=== PATIENT | male | born 1960 | race Caucasian/White ===

== ENCOUNTER 2019-02-20 12:54 | Emergency (ER) | payer OTHER ==
[2019-02-20 13:14] VITALS: BP 153/87
--- NOTE | 2019-02-20 13:24 | UC ---
UC General HPI - HPI Summary HPI Summary: PT STATES FELT NOT WELL DAY NIGHT. NOW HE HAS CHILLS AND A RASH ON THE INSIDE OF HIS L ANKLE. HX SAME AND WAS DX WITH CELLULITIS. + HX DM BUT BS STABLE. + HX MRSA. NO JOINT PAIN. - History of Current Complaint Chief Complaint: UCSkin Stated Complaint: SKIN CONCERN Time Seen by Provider: 02/20/19 13:07 Hx Obtained From: Patient Onset/Duration: Gradual Onset Timing: Constant Pain Intensity: 3 Associated Signs & Symptoms: Negative: Diarrhea, Headache, Vomiting - Allergy/Home Medications Allergies/Adverse Reactions: Allergies Allergy/AdvReac Type Severity Reaction Status Date / Time No Known Allergies Allergy Verified 02/20/19 13:09 Home Medications: Home Medications Ibuprofen TAB* [Advil TAB*] 400 - 600 mg PO Q6H PRN 02/20/19 [History Confirmed 02/20/19] Insulin Glargine,Hum.rec.anlog [Lantus Solostar 5x3 ML PENS] 20 units SUBCUT QAM 02/20/19 [History Confirmed 02/20/19] Metformin ER (NF) [Glucophage ER 750 MG TAB (NF)] 750 mg PO DAILY 02/20/19 [ History Confirmed 02/20/19] Omeprazole CAP (NF) [Prilosec CAP* 20 MG] 20 mg PO DAILY PRN 02/20/19 [History Confirmed 02/20/19] PMH/Surg Hx/FS Hx/Imm Hx - Additional Past Medical History Additional PMH: MRSA, CELLULITIS LLE Endocrine History: Diabetes GI/ History: Gastroesophageal Reflux - Surgical History Surgical History: Yes Surgery Procedure, Year, and Place: 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 Lopez 2000, umbilical hernia ~2010 - Family History Known Family History: Positive: Diabetes - Social History Occupation: Employed Full-time Alcohol Use: Rare Substance Use Type: None Smoking Status (MU): Smoker, Current Status Unknown Type: Cigars Amount Used/How Often: Maybe once a year Review of Systems All Other Systems Reviewed And Are Negative: No Constitutional: Positive: Fever, Chills Skin: Positive: Rash Gastrointestinal: Negative: Vomiting, Diarrhea Musculoskeletal: Negative: Arthralgia, Decreased ROM Physical Exam Triage Information Reviewed: Yes Appearance: Well-Appearing Vital Signs: Initial Vital Signs Temp 99.5 F 02/20/19 13:04 Pulse 96 02/20/19 13:04 Resp 18 02/20/19 13:04 BP 153/87 02/20/19 13:04 Pulse Ox 98 02/20/19 13:04 Vital Signs Reviewed: Yes Eyes: Positive: Conjunctiva Clear Neck: Positive: Supple Respiratory: Positive: Lungs clear, No accessory muscle use Cardiovascular: Positive: RRR Abdomen Description: Positive: Other: - NO INGUINAL ADENOPATHY Neurological: Positive: Alert Psychological: Positive: Age Appropriate Behavior Skin Exam: Normal, Other - 10CM AREA OF ERYTHEMA, WARMTH AND MILD SWELLING JUST SUPERIOR TO L MEDIAL MALLEOLUS. NO STREAKING. NO JOINT PAIN. MILD HYPERPIGMENTATION CHANGES NOTED. LLE HAS FULL S/V/M FUNCTION. Course/Dx - Differential Dx - Multi-Symptom Differential Diagnoses: Other - NON TOXIC. CELLULITIS AND HX MRSA THUS WILL TX WITH DOXYCYCLINE. NEED FOR CLOSE F/U STRESSED AND GO TO ER FOR WORSENING TO WHICH PT AGREES. - Diagnoses Provider Diagnosis: Cellulitis of left lower extremity Discharge ED - Sign-Out/Discharge Documenting (check all that apply): Patient Departure All imaging exams completed and their final reports reviewed: No Studies - Discharge Plan Condition: Stable Disposition: HOME Prescriptions: DOXYcycline CAP(*) [DOXYcycline 100MG CAP(*)] 100 mg PO BID 10 Days #20 cap Patient Education Materials: Cellulitis (ED) Forms: *Work Release Referrals: Micky Browning PA [Primary Care Provider] - 2 Days Additional Instructions: GO TO THE ER FOR ANY WORSENING - Billing Disposition and Condition Condition: STABLE Disposition: Home
== END 2019-02-20 13:29 | disposition home or self-care (01) ==
LOC: UCCORT 12:54
DX: L03.116 Cellulitis of left lower limb (principal); E11.9 Type 2 diabetes mellitus without complications; Z79.4 Long term (current) use of insulin; Z79.84 Long term (current) use of oral hypoglycemic drugs; K21.9 Gastro-esophageal reflux disease without esophagitis; Z86.14 Personal history of Methicillin resistant Staphylococcus aureus infection; F17.290 Nicotine dependence, other tobacco product, uncomplicated
CPT/HCPCS: 99212; G0463

== ENCOUNTER 2019-07-29 16:40 | Emergency (ER) | payer OTHER ==
--- OUTSIDE RECORDS SUMMARY | 2019-07-29 16:46 | XMS REPORT | Continuity of Care Document ---
:1960 External Reference #:[id number] Author Name Addi Castle M.D. 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 Onset: 03/17/2019 Kidney stone Addi Castle M.D. Onset: 03/17/2019 Screening for malignant neoplasm of prostate Addi Castle M.D. Onset: 03/2019 Ureteric stone Onset: Cellulitis Onset: Cellulitis of lower limb Onset: Hyperglycemia Onset: Hypertensive disorder Onset: Kidney stone Onset: Type 2 diabetes mellitus Onset: Renal colic Onset: Benign prostatic hyperplasia Addi Castle M.D. Onset: 03/31/2019 Social History Type Date Description Comments Sex Unknown Tobacco Use Start: Unknown Never Smoked Cigarettes Smokeless Tobacco Never Used Smokeless Tobacco ETOH Use Occasionally consumes alcohol Tobacco Use Start: Unknown Patient denies history rare use of cigars of smoking Recreational Drug Use Denies Drug Use Smoking Status Reviewed: 05/24/19 Patient denies history rare use of cigars of smoking Allergies, Adverse Reactions, Alerts Description No Known Drug Allergies Medications Active Medications SIG Qnty Indications Ordering Date Provider Potassium Citrate 1 tab by mouth twice 180tabs N20.0 Tin, 05/20/2019 ER a day Marcie Fontana 15Meq (1620 mg) Tablets ER Tamsulosin HCL 1 by mouth every day 90caps Tin, 05/13/2019 at bedtime Marcie Fontana 0.4mg Capsules Amlodipine Besylate Once Daily as needed 60tabs Unknown 04/27/2019 for if BP> 140/80 5mg Tablets SM Acidophilus 2 Times A Day 60caps Unknown 04/27/2019 10mg Capsules Sildenafil Citrate Daily as needed for 8tabs Unknown ED 100mg Tablets Omeprazole Once Daily 30tabs Unknown 20mg Tablets DR Metformin HCL ER Once Daily 30tabs Unknown 750mg Tablets ER 24HR Lantus Solostar Daily 6units Unknown 100Unit/ML Solution Pen-Inject Basaglar Kwikpen subcutaneous Unknown injection in am 100Unit/ML Solution Pen-Inject Prilosec 1 po qd Unknown 20mg Capsules DR History Medications Bactrim DS 1 tab by mouth 1tabs Addi Castle, 05/20/2019 - 800-160mg Once Given In M.D. 05/21/2019 Tablets Office Before Procedure Cefdinir 1 tab by mouth 1caps Addi Castle, 05/05/2019 - 300mg once given in M.D. 05/06/2019 Capsules office before procedure Cefdinir Every 12 Hours 15caps Unknown 04/27/2019 - 300mg 05/05/2019 Capsules Bactrim DS 1 tab by mouth 1tabs Addi Castle, 03/30/2019 - 800-160mg once given in M.D. 04/01/2019 Tablets office before procedure Dulcolax 4 tablets taken a 4tabs Z12.Terence Coe, 01/03/2019 - 5mg Tablets 8pm the day 03/14/2019 before the procedure Magnesium Citrate 296ml Z12.11 Terence Traore, 01/03/2019 - 03/14/2019 1.745GM/30ML Solution Suprep Bowel Prep one bottle at 354ml Z12.Terence Coe, 01/03/2019 - Kit night and one in 03/14/2019 the morning 17.5-3.13-1.6GM/177M L Solution Simethicone 1 tab by mouth 4units Z12.11 Terence Traore, 01/03/2019 - 125mg twice a day 03/17/2019 Chewt[facility] Immunizations CPT Code Status Date Vaccine Lot # 82437 Given Unknown Influenza Virus Vaccine, Quadrivalent, 36 Mos+, .5ML Vital Signs Date Vital Result Comment 06/10/2019 8:31am BP Systolic Sitting Left Arm 158 mmHg BP Diastolic Sitting Left Arm 84 mmHg Body Temperature 98.5 F Heart Rate 78 /min Respiratory Rate 16 /min Height 70 inches 5'10" Weight 213.00 lb BMI (Body Mass Index) 30.6 kg/m2 BSA (Body Surface Area) 2.14 m2 [place] body weight in kilograms 75 kg O2 % BldC Oximetry 99 % 05/20/2019 8:56am BP Systolic 134 mmHg BP Diastolic 82 mmHg Body Temperature 96.5 F Tympanic Heart Rate 80 /min Respiratory Rate 17 /min Height 70 inches 5'10" Weight 214.00 lb Pain Level 0 BMI (Body Mass Index) 30.7 kg/m2 BSA (Body Surface Area) 2.15 m2 [place] body weight in kilograms 75 kg O2 % BldC Oximetry 98 % Results Test Acquired Date Facility Test Result H/L Range Note Urine Dipstick 06/10/2019 [facility] Color Yellow Yellow Ua Clarity Clear Clear Ua Leuko Negative Negative Ua Nitrite Negative Negative Ua Urobilinogen 0.2 0.2 - 1.0 E.U./dL Ua Protein Negative Negative Ua PH 7.0 6.5-7.5 Ua Blood Negative Negative Ua Specific [place] 1.015 1.010-1.030 Ua Ketones Negative Negative Ua Bilirubin Negative Negative Ua Glucose 1000 High Negative Calculi,Urinary,With Photo 05/11/2019 [facility] Color [place] . [address] [place] [address] [phone] Size (SEE NOTE) 2 Weight 95.5 mg . Composition (SEE NOTE) 3 Uric Acid 100 % . Nidus (SEE NOTE) 4 . (SEE NOTE) 5 . (SEE NOTE) 6 . (SEE NOTE) 7 Disclaimer (SEE NOTE) 8 Basic Metabolic Panel 05/02/2019 [facility] Glucose 161 mg/dL High 74-106 [address] [place] [address] [phone] BUN 15 mg/dL Normal 7-18 Creatinine 1.1 mg/dL Normal 0.6-1.3 Glom Filtration Rate, Estimate >60 mL/min >60 If >60 mL/min >60 10 BUN/Creat 13.6 ratio Sodium 140 mmol/L Normal 136-145 Potassium 3.3 mmol/L Low 3.5-5.1 Chloride 107 mmol/L Normal 98-107 Carbon Dioxide 27 mmol/L Normal 21-32 Anion Gap 6 mEq/L Low 8-16 Calcium 8.8 mg/dL Normal 8.5-10.1 Imm Granulocytes # 04/27/2019 N2N/CCD Import Immature Granulocyte # 0.06 Bld Auto (Auto) nRBC # Bld Auto 04/27/2019 N2N/CCD Import Nucleated RBC Absolute 0.00 Count (auto) Glucose SerPl-mCnc 04/27/2019 N2N/CCD Import Glucose Screen 231 High 74- 10 6 BUN SerPl-mCnc 04/27/2019 N2N/CCD Import Blood Urea Nitrogen 19 High 7- 18 Creat SerPl-mCnc 04/27/2019 N2N/CCD Import Creatinine 1.3 0.6-1 .3 GFR/Bsa pred.non 04/27/2019 N2N/CCD Import Estimated GFR 60 >60 black SerPl (Non- MDRD-ArVRat GFR/Bsa pred.black 04/27/2019 N2N/CCD Import Estimated GFR ( >60 >60 SerPl MDRD-ArVRat [place]) BUN/Creat SerPl 04/27/2019 N2N/CCD Import BUN/Creatinine Ratio 14.6 Sodium SerPl-sCnc 04/27/2019 N2N/CCD Import Sodium Level 140 136-1 45 Potassium 04/27/2019 N2N/CCD Import Potassium Level 3.4 Low 3.5-5 SerPl-sCnc .1 Chloride 04/27/2019 N2N/CCD Import Chloride Level 108 High 98-10 SerPl-sCnc 7 Co2 SerPl-sCnc 04/27/2019 N2N/CCD Import Carbon Dioxide Level 25 21-32 Anion Gap 04/27/2019 N2N/CCD Import Anion Gap 7 Low 8-16 SerPl-sCnc Calcium SerPl-mCnc 04/27/2019 N2N/CCD Import Calcium Level 8.2 Low 8.5-1 0.1 Magnesium 04/27/2019 N2N/CCD Import Magnesium Level 2.1 1.8-2 SerPl-nc .4 Prot SerP[facility] 04/27/2019 N2N/CCD Import Total Protein 6.9 6.4-8 .2 Albumin SerPl-[facility] 04/27/2019 N2N/CCD Import Albumin 3.5 3.4-5 .0 Globulin Ser 04/27/2019 N2N/CCD Import Globulin 3.4 1.9-4 Calc-mCnc .3 Albumin/Glob SerPl 04/27/2019 N2N/CCD Import Albumin/Globulin Ratio 1.0 Bilirub SerP-[facility] 04/27/2019 N2N/CCD Import Total Bilirubin 0.8 0.2-1 .0 Ast [facility] 04/27/2019 N2N/CCD Import Aspartate Amino Transf 9 Low 15- 37 (Ast/Sgot) Alt [facility] 04/27/2019 N2N/CCD Import Alanine 36 12-78 Aminotransferase (Alt/SGPT) Alp [facility] 04/27/2019 N2N/CCD Import Alkaline Phosphatase 112 45-11 7 CRP [facility] 04/27/2019 N2N/CCD Import C-Reactive Protein, 19.1 High < 3.0 Quantitative Calculi,Urinary,Wi 04/27/2019 [facility] Color [place] . [address] Photo [address] [place] [address] [phone] Size 7x5x4 mm . Weight 121.9 mg . Composition (SEE NOTE) 12 Uric Acid 100 % . Nidus (SEE NOTE) 13 Comment Note: . 14 . (SEE NOTE) 15 . (SEE NOTE) 16 . (SEE NOTE) 17 Disclaimer (SEE NOTE) 18 Glucose BldC 04/27/2019 N2N/CCD Import Bedside Glucose 214 High 70-110 Glucomtr-[facility] WBC # XXX Auto 04/27/2019 N2N/CCD Import White Blood 10.8 High 3.4-10.5 Count RBC # Bld Auto 04/27/2019 N2N/CCD Import Red Blood Count 4.91 4.20-5.80 Hgb d-[facility] 04/27/2019 N2N/CCD Import Hemoglobin 15.1 12.8-17.0 Hct VFr d Auto 04/27/2019 N2N/CCD Import Hematocrit 43.8 38.0-48.0 MCV RBC Auto 04/27/2019 N2N/CCD Import Mean 89.2 80.0-96.0 Corpuscular Volume MCH RBC Qn Auto 04/27/2019 N2N/CCD Import Mean 30.8 27.0-33.0 Corpuscular Hemoglobin MCHC RBC 04/27/2019 N2N/CCD Import Mean 34.5 31.7-36.0 Auto-mCnc Corpuscular Hemoglobin Concent Platelet # Bld 04/27/2019 N2N/CCD Import Platelet Count 180 155-360 Auto RDW RBC Auto 04/27/2019 N2N/CCD Import Red Cell 41.7 36-51 Distribution Width RDW RBC Auto-Rto 04/27/2019 N2N/CCD Import RDW Coefficient 12.9 11.6- 15.8 of Variation PMV Bld Auto 04/27/2019 N2N/CCD Import Mean Platelet 9.3 6.6-10.6 Volume Neutrophils/leuk 04/27/2019 N2N/CCD Import Neutrophils (%) 84.5 High 33.0 -73.0 NFr Bld Auto (Auto) Lymphocytes/leuk 04/27/2019 N2N/CCD Import Lymphocytes (%) 10.1 Low 20.0- 42.0 NFr Bld Auto (Auto) Monocytes/leuk 04/27/2019 N2N/CCD Import Monocytes (%) 4.7 0.0-10.0 NFr Bld Auto (Auto) Eosinophil/leuk 04/27/2019 N2N/CCD Import Eosinophils (%) 0.0 0.0-6.6 NFr Bld Auto (Auto) Basophils/leuk 04/27/2019 N2N/CCD Import Basophils (%) 0.1 0.0-1.1 NFr Bld Auto (Auto) Imm 04/27/2019 N2N/CCD Import Immature 0.6 0.0-5.0 Granulocytes/leuk Granulocyte % NFr Bld Auto (Auto) nRBC/100 WBC Bld 04/27/2019 N2N/CCD Import Nucleated Red 0.0 < 10/ 100 Auto-Rto Blood Cells % WBC (auto) Neutrophils # Bld 04/27/2019 N2N/CCD Import Neutrophils # 9.09 High 1.8- 7.0 Auto (Auto) Lymphocytes # Bld 04/27/2019 N2N/CCD Import Lymphocytes # 1.09 1.0-4.0 Auto (Auto) Monocytes # Bld 04/27/2019 N2N/CCD Import Monocytes # 0.51 0.0-0.8 Auto (Auto) Eosinophil # Bld 04/27/2019 N2N/CCD Import Eosinophils # 0.00 0.0-0.5 Auto (Auto) Basophils # Bld 04/27/2019 N2N/CCD Import Basophils # 0.01 0.0-0.1 Auto (Auto) Est. average 04/26/2019 N2N/CCD Import Estimated 166 glucose Bld gHb Average Glucose Est-mCnc (eAG) Hgb A1c MFr Bld 04/26/2019 N2N/CCD Import Hemoglobin A1c 7.4 High 4.2- 6.3 Miscellaneous 04/26/2019 N2N/CCD Import N/A Test(s) studies added Lipase SerPl-cCnc 04/25/2019 N2N/CCD Import Lipase 50 Low 56-289 Bacteria Ur Cult 04/25/2019 N2N/CCD Import Urine Culture No Growth: Final Report Laboratory 04/25/2019 N2N/CCD Import Urine Culture Culture To comment Report Reflexed Follow Mucous Threads Ur 04/25/2019 N2N/CCD Import Urine Mucus Small None Seen Ql Auto Bacteria Ur Ql 04/25/2019 N2N/CCD Import Urine Bacteria Few None Seen Auto WBC #/area UrnS 04/25/2019 N2N/CCD Import Urine WBC 11-20 0-5 HPF Lab Results 04/25/2019 N2N/CCD Import Urine RBC > 50 High 0-2 Leukocyte 04/25/2019 N2N/CCD Import Urine Leukocyte Negative Negative esterase Ur Ql Esterase Strip.auto Nitrite Ur Ql 04/25/2019 N2N/CCD Import Urine Nitrite Negative Negative Strip.auto Urobilinogen Ur 04/25/2019 N2N/CCD Import Urine < 2.0 < 2.0 Ql Strip.auto Urobilinogen Prot Ur Ql 04/25/2019 N2N/CCD Import Urine Protein 50 High Negative Strip.auto pH Ur Strip.auto 04/25/2019 N2N/CCD Import Urine pH 5.5 Low 6.5-7.5 Hgb Ur Ql 04/25/2019 N2N/CCD Import Urine Blood Large High Negative Strip.auto Sp Gr Ur 04/25/2019 N2N/CCD Import Urine Specific 1.014 1.010-1.030 Refractometry [place] Ketones Ur Ql 04/25/2019 N2N/CCD Import Urine Ketones Negative Negative Strip.auto Bilirub Ur Ql 04/25/2019 N2N/CCD Import Urine Bilirubin Negative Negative Strip.auto Glucose Ur Ql 04/25/2019 N2N/CCD Import Urine Glucose >1000 Negative Strip.auto (Ua) Appearance Ur 04/25/2019 N2N/CCD Import Urine Clarity Slightly Clear Cloudy Color Ur Auto 04/25/2019 N2N/CCD Import Urine Color Brown Yellow Laboratory test 03/31/2019 [facility] Prostate 3.41 ng/mL < 4.0 19, finding [address] [place] [address] Antigen [phone] Urine Dipstick 03/31/2019 [facility] Ua Color YELLOW Yellow Ua Clarity CLEAR Clear Ua Leuko NEG Negative Ua Nitrite NEG Negative Ua Urobilinogen .2 0.2 - 1.0 E.U./dL Ua Protein NEG Negative Ua PH 5.0 Low 6.5-7.5 Ua Blood 80 High Negative Ua Specific [place] 1.030 1.010-1.030 Ua Ketones NEG Negative Ua Bilirubin NEG Negative Ua Glucose 1000 High Negative Basic Metabolic Panel 03/17/2019 [facility] Glucose 168 mg/dL High 74-[address] [place] [address] [phone] BUN 15 mg/dL Normal 7-18 Creatinine 0.9 mg/dL Normal 0.6-1.3 Glom Filtration Rate, Estimate >60 mL/min >60 If >60 mL/min >60 22 BUN/Creat 16.6 ratio Sodium 138 mmol/L Normal 136-145 Potassium 3.5 mmol/L Normal 3.5-5.1 Chloride 105 mmol/L Normal 98-107 Carbon Dioxide 28 mmol/L Normal 21-32 Anion Gap 5 mEq/L Low 8-16 Calcium 8.8 mg/dL Normal 8.5-10.1 Urine Dipstick 03/17/2019 [facility] Color Yellow Yellow Ua Clarity Clear Clear Ua Leuko Negative Negative Ua Nitrite Negative Negative Ua Urobilinogen 0.2 0.2 - 1.0 E.U./dL Ua Protein 30 High Negative Ua PH 6.0 Low 6.5-7.5 Ua Blood 200 High Negative Ua Specific [place] 1.030 1.010-1.030 Ua Ketones Negative Negative Ua Bilirubin Negative Negative Ua Glucose 1000 High Negative 1 CONSULT 05/05/19 79867 18210 14619 [id number] 2 Specimen received as fragments. 3 Percentage (Represents the % composition) 4 Nidus composed of Uric acid. 5 Photograph will follow under separate cover. 6 Physician questions regarding Calculi Analysis contact [facility] at: [phone]. 7 Calculi report with photograph will follow via computer, mail or international editorial producer delivery. 8 This test was developed and its performance characteristics determined by [employer]. It has not been cleared or approved by the Food and Drug Administration. Performed at: [facility] [address] [id number] [employer]: Sajan Lew MD, Phone: [phone] RF 10 Note: Persistent reduction for 3 months or more in an eGFR <60 mL/min/1.73 m2 defines CKD. Patients with eGFR values >/=60 mL/min/1.73 m2 may also have CKD if evidence of persistent proteinuria is present. The original MDRD equation for estimated GFR is not valid for patients less than 18 years of age. Additional information may be found at www.kdoqi.org. 11 RIGHT URETERAL STONE 12 Percentage (Represents the % composition) 13 Nidus composed of Uric acid. 14 Please do not submit specimens on Q-Tips, in tape, on filters, or in liquids such as blood, urine or formalin. This may cause unnecessary biohazards, erroneous results and/or delay in the processing of the specimen. 15 Photograph will follow under separate cover. 16 Physician questions regarding Calculi Analysis contact [employer] at: [phone]. 17 Calculi report with photograph will follow via computer, mail or international editorial producer delivery. 18 This test was developed and its performance characteristics determined by [employer]. It has not been cleared or approved by the Food and Drug Administration. Performed at: [facility] [address] [id number] [employer]: Sajan Lew MD, Phone: [phone] 19 Z12.5 20 THIS ASSAY IS NOT INTENDED A CANCER SCREENING TEST The concentration of PSA in a given specimen, determined with assays from different manufacturers, can vary due to differences in assay methods and reagent specificity. Values obtained from different assay methods cannot be used interchangeably. Method: Siemens [employer] [place] Chemiluminescent immunoassay. 21 D12.2 R31.9 22 Note: Persistent reduction for 3 months or more in an eGFR <60 mL/min/1.73 m2 defines CKD. Patients with eGFR values >/=60 mL/min/1.73 m2 may also have CKD if evidence of persistent proteinuria is present. The original MDRD equation for estimated GFR is not valid for patients less than 18 years of age. Additional information may be found at www.kdoqi.org. Procedures Date Code Description Status 05/20/2019 40959 Cystourethroscopy W/Removal FB/Calc/Stent Completed Urethra/Bladder Simple 05/13/2019 07030 Irrigation Of Bladder Completed 05/11/2019 51108 Cystourethroscopy Each Additional Permanent Adj Implant Completed 05/11/2019 63351 Cystourethroscopy W/ Insert Permanent Adj Completed Transprostatic Implant 05/11/2019 14425 Cystourethroscopy W/ Lithotripsy Incl. Ins. Indwelling Completed Stent 05/11/2019 24237 Cystourethroscopy W/ Removal Urethral Calculus Completed 05/05/2019 93058 Measurement Post Voiding Residual Urine By Completed Ultrasound,Non-Imaging 04/26/2019 36513 Cystourethroscopy W/ Insert Indwelling Ureteral Stent Completed 04/26/2019 89709 Cystourethroscopy W/ Removal Urethral Calculus Completed 03/31/2019 92380 Cystoscopy Completed 02/02/2019 44509 Colonoscopy With Biopsy Completed 02/02/2019 34719249 Colonoscopy Completed 03/19/2009 81523630 Colonoscopy Completed Medical Devices Description No Information Available Encounters Type Date Location Provider Dx Diagnosis Office Visit 05/20/2019 9:15a Urology Addi Castle M.D. N20.0 Calculus of kidney N40.1 Benign prostatic hyperplasia with lower urinary tract symp Office Visit 05/13/2019 9:45a Urology Robin Fitzgerald, N20.0 Calculus of kidney PA N40.1 Benign prostatic hyperplasia with lower urinary tract symp Office Visit 05/05/2019 10:15a Urology Addi Castle M.D. N20.0 Calculus of kidney N40.1 Benign prostatic hyperplasia with lower urinary tract symp Office Visit 03/31/2019 9:00a Urology Addi Castle M.D. R31.0 Gross hematuria N20.0 Calculus of kidney N40.1 Benign prostatic hyperplasia with lower urinary tract symp Z12.5 Encounter for screening for malignant neoplasm of prostate Office Visit 03/17/2019 10:00a Urology Addi Castle M.D. R31.0 Gross hematuria N20.0 Calculus of kidney Office Visit 03/17/2019 8:45a Terence Storm MD D12.2 Benign neoplasm of ascending colon D12.3 Benign neoplasm of transverse colon R31.9 Hematuria, unspecified Office Visit 01/03/2019 11:00a Terence Storm MD Z12.11 Encounter for screening for malignant neoplasm of colon Assessments Date Code Description Provider 06/10/2019 N40.1 Benign prostatic hyperplasia with lower Addi Castle M.D. urinary tract symptoms 06/10/2019 N20.0 Calculus of kidney Addi Castle M.D. 06/10/2019 R31.0 Gross hematuria Addi Castle M.D. 05/20/2019 N20.0 Calculus of kidney Addi Castle M.D. 05/20/2019 N40.1 Benign prostatic hyperplasia with lower Addi Castle M.D. urinary tract symptoms 05/13/2019 N20.0 Calculus of kidney Robin Fitzgerald PA 05/13/2019 N40.1 Benign prostatic hyperplasia with lower Robin Fitzgerald PA urinary tract symptoms 05/11/2019 N20.0 Calculus of kidney Addi Castle M.D. 05/11/2019 N40.1 Benign prostatic hyperplasia with lower Addi Castle M.D. urinary tract symptoms 05/11/2019 N13.30 Unspecified hydronephrosis Addi Castle M.D. 05/11/2019 Z96.0 Presence of urogenital implants Addi Castle M.D. 05/05/2019 N20.0 Calculus of kidney Addi Castle M.D. 05/05/2019 N40.1 Benign prostatic hyperplasia with lower Addi Castle M.D. urinary tract symptoms 04/27/2019 N20.1 Calculus of ureter Sveta Romero M.D. 04/27/2019 R10.31 Right lower quadrant pain Sveta Romero M.D. 04/27/2019 I10 Essential (primary) hypertension Sveta Romero M.D. 04/27/2019 N17.9 Acute kidney failure, unspecified Sveta Romero M.D. 04/26/2019 N20.1 Calculus of ureter Addi Castle M.D. 04/26/2019 R11.0 Nausea Addi Castle M.D. 04/26/2019 N20.1 Calculus of ureter Sveta Romero M.D. 04/26/2019 R10.31 Right lower quadrant pain Addi Castle M.D. 04/26/2019 D72.829 Elevated white blood cell count, Addi Castle M.D. unspecified 04/26/2019 R10.31 Right lower quadrant pain Sveta Romero M.D. 04/26/2019 R11.0 Nausea Sveta Romero M.D. 04/26/2019 I10 Essential (primary) hypertension Sveta Romero M.D. 04/25/2019 N23 Unspecified renal colic Bon Wooten MD 04/25/2019 N20.1 Calculus of ureter Bon Wooten MD 04/25/2019 R11.2 Nausea with vomiting, unspecified Bon Wooten MD 04/25/2019 R31.0 Gross hematuria Bon Wooten MD 03/31/2019 R31.0 Gross hematuria Addi Castle M.D. 03/31/2019 N20.0 Calculus of kidney Addi Castle M.D. 03/31/2019 N40.1 Benign prostatic hyperplasia with lower Addi Castle M.D. urinary tract symptoms 03/31/2019 Z12.5 Encounter for screening for malignant Addi Castle M.D. neoplasm of prostate 03/17/2019 R31.0 Gross hematuria Addi Castle M.D. 03/17/2019 D12.2 Benign neoplasm of ascending colon Terence Traore MD 03/17/2019 N20.0 Calculus of kidney Addi Castle M.D. 03/17/2019 D12.3 Benign neoplasm of transverse colon Terence Traore MD 03/17/2019 R31.9 Hematuria, unspecified Terence Traore MD 02/02/2019 Z12.11 Encounter for screening for malignant Terence Traore MD neoplasm of colon 02/02/2019 D12.2 Benign neoplasm of ascending colon Terence Traore MD 02/02/2019 D12.3 Benign neoplasm of transverse colon Terence Traore MD 02/02/2019 K63.5 Polyp of colon Terence Traore MD 01/03/2019 Z12.11 Encounter for screening for malignant Terence Traore MD neoplasm of colon Plan of Treatment Future Appointment(s):12/19/2019 8:45 am - Addi Castle M.D. at [id number] - Addi Castle M.D.N40.1 Benign prostatic hyperplasia with lower urinary tract symptomsComments:Patient is status post urethral lift. He is doing well and has no evidence of a postvoid residual.N20.0 Calculus of kidneyNew Xrays:CT, Abdomen & Pelvis W/O Contrast, Ordered: 06/10/19Comments :Patient with uric acid stones and still has some left kidney stone that have not been managed. We'll try to dissolve those and I have placed the patient on potassium citrate. His urine pH is 7.5 which is adequate and I will check his potassium levels today. We'll obtain a CT scan in 6 months to assess if the stones have ureznnsgfV60.0 Gross hematuriaComments:Patient completed a workup in 2019 and there has been no recurrence. Functional Status Description No Information Available Mental Status Description No Information Available Referrals Description No Information Available
--- NOTE | 2019-07-29 17:16 | UC ---
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 Denies injury to ankle. Pt states he's been on his feet for almost 24 hours, since 5pm yesterday. Since then pain and swelling in ankle. 3 years ago pt dx cellulitis in LEFT ankle and +MRSA; had surgery to "remove infection" from ankle. c/o increased redness, local discomfort distal medial LLE. Hx problem wound / infection after surgery 3 yrs ago. Concerned + hx MRSA. Has been on his feet for several long hours since yesterday. Usually has compression, but today. Is being rx'd by pcp re L great and 3rd toe infection. Using antifungal cream. No fever / chills. No sob / cp / palpitations. No GI issues. 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 Lopez 2000, umbilical hernia ~2010 - Family History Known Family History: Positive: Diabetes - Social History Alcohol Use: None Substance Use Type: None Smoking Status (MU): Smoker, Current Status Unknown Type: Cigars Amount Used/How Often: Maybe once a year Review of Systems All Other Systems Reviewed And Are Negative: Yes Constitutional: Positive: Negative Skin: Positive: Other - see hpi Eyes: Positive: Negative ENT: Positive: Negative Respiratory: Positive: Negative Cardiovascular: Positive: Negative Gastrointestinal: Positive: Negative Genitourinary: Positive: Negative Motor: Positive: Other - see hpi no new weakness Musculoskeletal: Positive: Edema Neurological: Positive: Negative Psychological: Positive: Negative Is Patient Immunocompromised?: No Physical Exam Triage Information Reviewed: Yes Appearance: Well-Appearing, Well-Nourished Vital Signs: Initial Vital Signs Temp 97.4 F 07/29/19 16:48 Pulse 82 07/29/19 16:48 Resp 16 07/29/19 16:48 BP 146/106 07/29/19 16:48 Pulse Ox 99 07/29/19 16:48 Vital Signs Reviewed: Yes Eye Exam: Normal ENT Exam: Normal Neck exam: Normal - no c/o's reported Respiratory Exam: Normal - RR normal, no dyspnea, no tachypnea Cardiovascular Exam: Normal - HR normal, nondiaphoretic. Distal cap refill is good. Faint DP left foot, no PT palpable. Abdominal Exam: Normal - benign Musculoskeletal Exam: Other - Both legs with + varicosities. Distal medial LLE + healed surgical scar, with focal hemosiderosis. There is focal redness, slightly warm to touch. No drainage. No fluctuance. 1st and 3rd toes + dystrophic nails L, + swelling with fungal appearing dermatitis. No purulence. Neurological Exam: Other - grossly nonfocal + distal neuropathy per pt chronic Psychological Exam: Normal - nad Skin Exam: Normal - see [facility] [place] nondiaphoretic Course/Dx - Course Course Of Treatment: No prior cx in [facility]. + hx mrsa per pt, in the setting of DM and prior problem wound and / or cellulitis. Some of today's redness may be related to stasis dermatitis in previously wounded area. However, given hx mrsa and dm, will start doxycycline. Encouraged elevation as possible, compression, moisturizer unscented. Mr. Cadet has an appt with pcp early this upcoming week re toenail / toe recheck. Has a risk lead too, plans future f/u, appt not yet scheduled. He will check with pcp. Work note written, he works often at night. Will benefit from the next couple days / nights off work. Questions as posed answered to the best of my ability. - Diagnoses Provider Diagnosis: Cellulitis, Leg edema, Venous insufficiency Discharge ED - Sign-Out/Discharge Documenting (check all that apply): Patient Departure All imaging exams completed and their final reports reviewed: No Studies - Discharge Plan Condition: Stable Disposition: HOME Prescriptions: DOXYcycline CAP(*) [DOXYcycline 100MG CAP(*)] 100 mg PO BID #14 cap Patient Education Materials: Cellulitis (ED), Leg Edema (ED), Venous Insufficiency (DC) Forms: *Work Release Referrals: Micky Browning PA [Primary Care Provider] - Additional Instructions: Blood pressure today 146/106 (147/95). Please have this rechecked this upcoming week when you see your primary care provider. Your legs have evidence of chronic venous insufficiency with edema. Elevate as much as possible, compression at least during the day. Further evaluation per your primary care provider. 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 Seek medical attention for worse or new problems. - Billing Disposition and Condition Condition: STABLE Disposition: Home
[2019-07-29 17:51] VITALS: BP 147/95
== END 2019-07-29 18:03 | disposition home or self-care (01) ==
LOC: UCCORT 16:40
DX: L03.116 Cellulitis of left lower limb (principal); I87.2 Venous insufficiency (chronic) (peripheral); R60.0 Localized edema
CPT/HCPCS: 99212; G0463